=== PATIENT | male | born 1945 | race Caucasian/White ===

== ENCOUNTER 2024-01-12 21:28 | Emergency (ER) | payer OTHER ==
[~2024-01-12] VITALS: Ht 185.4 cm; Wt 118.2 kg
[2024-01-12 23:27] VITALS: BP 146/76; PULSE 98; RESP 20; TEMP 98.2; O2SAT 95
[2024-01-12] MEDS: DexAMETHasone SOD PHOS 10MG/1ML VIAL INJ IM ONE (23:39)
== END 2024-01-12 23:45 | disposition home or self-care (01) ==
LOC: ER 21:28
DX: J02.9 Acute pharyngitis, unspecified (principal); R59.0 Localized enlarged lymph nodes; J44.9 Chronic obstructive pulmonary disease, unspecified
CPT/HCPCS: 96372; 99283; J1100

== ENCOUNTER 2024-04-01 21:29 | Inpatient (IN) | payer MEDICARE, OTHER ==
[~2024-04-01] VITALS: Ht 185.4 cm; Wt 118.0 kg
[2024-04-01] MEDS: MORPHINE SULFATE INJ 2 MG/ml SYRG IV ONE (21:45)
[2024-04-01] MEDS: ASPirin-EC 81 mg tab PO ONE (21:45)
--- NOTE | 2024-04-01 21:48 | ED.PDOC ---
HPI Comments HPI: Poor Historian. 79-year-old male brought in by ambulance from home for evaluation of chest pain with palpitation that happened approximately 8:00 p.m. after he took all his usual home medications including albuterol. Patient laid in bed and started having this sensation. He received aspirin and nitroglycerin prior to arrival which she has brought his pain and discomfort down to 0. Patient uses oxygen at nighttime as needed Past Medcial History: Supple medical problems Past Surgical History: REVIEW OF SYSTEMS: CONSTITUTIONAL: Denies acute: fever, diaphoresis, chills, HEAD: Denies acute: headache, photophobia Eyes: Denies acute: Double vision, vision loss, eye pain, eye discharge. EARS: Denies acute: tinnitus, hearing loss, ear discharge, ear pain, THROAT: Denies acute: sore throat, swelling, difficulty swallowing , pain with s wallowing, change in voice. NECK: Denies acute: neck pain, neck swelling, stiff neck. HEART: Denies acute : LUNGS: Denies acute: SOB, wheezing, cough, hemoptysis ABDOMEN: Denies acute: abdominal pain, Nausea, Vomiting, diarrhea, melena , hematemesis, hematochezia SKIN: Denies acute: rash, redness, lesions, itchiness. EXTREMITIES: Denies acute: calf pain, numbness, tingling, weakness, denies pain in extremity. Denies acute: Low back pain. Neuro: Denies acute: focal neurological deficit, motor or sensory focal neurological deficit, tremors, seizure like activity, confusion, dizziness, change in mental status, loss of bowel or bladder function, cauda equina like symptoms. : Denies acute: dysuria, hematuria, flank pain, increase in urinary frequency. PSYCH: Denies acute: hallucination, suicidal ideation, homicidal ideation. PHYSICAL EXAM: General: no acute distress, awake and alert. Head: normocephalic, atraumatic. Neck: supple, trachea is midline, no swelling. Throat: Normal phonation. Eyes:, no erythema, no purulent discharge, no proptosis, no icterus. Heart: regular rate, regular rhythm, no significant murmur appreciated. Lungs: no apparent respiratory distress, Able to speak in full sentences. No wheezing, no rhonchi, no crackles. No stridors Clear to auscultation bilaterally. Abdomen: non tender to palpation, non distended, soft, no guarding, no rebound, + bowel sounds. Neuro: Awake, Alert, oriented to name, self, situation, follows commands GCS=15. Speech is normal. Skin: no petechia, no purpura, no cyanosis, non-pale, not jaundice. Lower extremities: --1/4 bilateral - Pitting edema no deformity, no focal swelling, no calf TTP. Makes eye contact. moves all four extremities. Face: no apparent facial droop. Chief Complaint: Chest Pain Time Seen by MD: 21:40 Reviewed Notes: Nurses Notes, Regional Project Manager Notes, Medications, Allergies Allergies: Coded Allergies: NO KNOWN ALLERGIES (Unverified , 01/12/24) Home Meds Unable to Obtain Active Prescriptions or Reported Meds Information Source: Patient, Emergency Med Personnel Past Medical History PAST MEDICAL HISTORY: COPD Family History Family History: Reviewed,noncontributory to illness Was a procedure done? Was a procedure done?: No CP Differential Dx Differential Diagnosis: Other Differential Diagnosis: Other (Ddx include but not limitied to gastritis, musculoskeletal pain, radiculopathy, atypical chest pain, dissection, aneurysm, ACS, unstable angina, hiatal hernia, GERD, anxiety, costochondritis, PE, pneumothroax, neoplasm, cardiac ischemia, drug abuse, anemia.) X-Ray, Labs, Meds, VS Vital Signs Date Time Temp Pulse Resp B/P (MAP) Pulse Ox O2 Delivery O2 Flow Rate FiO2 04/01/24 22:40 Nasal Cannula* 3 32 04/01/24 22:40 97.6 77 19 111/62 (78) 94 97.6 04/01/24 22:26 82 04/01/24 21:32 98.7 101 18 143/75 (97) 92 04/01/24 21:31 91 Lab Test 04/01/24 22:40 04/01/24 21:35 Range/Units Troponin I High Sensitivity 3 L 4 </=54 ng/L White Blood Count 5.3 4.4-10.8 10^3/uL Red Blood Count 4.46 L 4.5-5.90 10^6/uL Hemoglobin 14.1 13.5-17.5 g/dL Hematocrit 41.2 41.0-53.0 % Mean Corpuscular Volume 92.4 80.0-100.0 fL Mean Corpuscular Hemoglobin 31.6 28.0-32.0 pg Mean Corpuscular Hemoglobin Concent 34.1 32.0-36.0 g/dL Red Cell Distribution Width 15.5 H 11.8-14.3 % Platelet Count 172 140-450 10^3/uL Mean Platelet Volume 7.2 6.9-10.8 fL Neutrophils (%) (Auto) 38.8 37.0-80.0 % Lymphocytes (%) (Auto) 43.8 10.0-50.0 % Monocytes (%) (Auto) 13.1 H 0.0-12.0 % Eosinophils (%) (Auto) 3.1 0.0-7.0 % Basophils (%) (Auto) 1.2 0.0-2.0 % Neutrophils # (Auto) 2.1 1.6-8.6 10 ^3/uL Lymphocytes # (Auto) 2.3 0.4-5.4 10 ^3/uL Monocytes # (Auto) 0.7 0-1.3 10 ^3/uL Eosinophils # (Auto) 0.2 0-0.8 10 ^3/uL Basophils # (Auto) 0.1 0-0.2 10 ^3/uL Nucleated Red Blood Cells 0.0 % Prothrombin Time 12.1 H 9.3-11.8 sec Prothrombin Time INR 1.15 0.9-1.15 Activated Partial Thromboplast Time 29.3 24.5-34.5 SEC Sodium Level 141 136-145 mmol/L Potassium Level 3.8 3.5-5.1 mmol/L Chloride Level 109 H 98-107 mmol/L Carbon Dioxide Level 25 20-31 mmol/L Anion Gap 7 5-15 Blood Urea Nitrogen 10 9-23 mg/dL Creatinine 1.46 H 0.700-1.30 mg/dL Glomerular Filtration Rate Calc 48 >90 mL/min BUN/Creatinine Ratio 6.8 L 10.0-20.0 Serum Glucose 107 H 74-106 mg/dL Calcium Level 9.5 8.7-10.4 mg/dL Magnesium Level 1.8 1.6-2.6 mg/dL Total Bilirubin 0.5 0.2-1.0 mg/dL Aspartate Amino Transferase (AST) 11 L 13-40 U/L Alanine Aminotransferase (ALT) 10 7-40 U/L Alkaline Phosphatase 84 46-116 U/L B-Type Natriuretic Peptide 27.06 0-100 pg/mL Total Protein 6.0 5.7-8.2 g/dL Albumin 3.8 3.2-4.8 g/dL Time of 1ST Reevaluation: 22:00 Reevaluation 1ST: Improved Patient Education/Counseling: Diagnosis, Treatment Family Education/Counseling: No Family Present Comments Patient presented with the above HPI.--cardiac----workup was initiated. patient was found with the above mentioned diagnosis. Patient ED course and VS have been stabilized. Patient has been reassessed in the ED and remained in a stable condition. Pertinent incidental findings were discussed with the patient and/or family. Patient/family voices understanding and is agreeable with plan. Patient has been observed in the ED adequate length of time to insure improve ment/stability. patient was admitted to the medicine team for further evaluation and treatment of their presentation. All the reports of any imaging studies that were ordered by myself were reviewed by myself. Departure 1 Departure Time of Disposition: 22:35 Impression: Primary Impression: Chest pain Disposition: ADMITTED INPATIENT Admit to: Tele Condition: Guarded e-Prescriptions Unable to Obtain Active Prescriptions or Reported Meds Discharged With: Self Critical Care Note Critical Care Time?: No Heart Score Heart Score: Heart Score Response (Comments) Value History Slightly Suspicious 0 EKG Normal 0 Age >65 2 Risk Factors 1 or 2 risk factors 1 Troponin Normal limit 0 Total 3 LUIZA ROY DO Apr 01, 2024 21:48
[2024-04-01 21:50] LABS: Basophils # (auto) 0.1 10 ^3/uL (0-0.2); Basophils % (auto) 1.2 % (0.0-2.0); Eosinophils # (auto) 0.2 10 ^3/uL (0-0.8); Eosinophils % (auto) 3.1 % (0.0-7.0); Hematocrit 41.2 % (41.0-53.0); Hemoglobin 14.1 g/dL (13.5-17.5); Lymphocytes # (auto) 2.3 10 ^3/uL (0.4-5.4); Lymphocytes % (auto) 43.8 % (10.0-50.0); Mean Corpuscular Hemoglobin 31.6 pg (28.0-32.0); Mean Corpuscular Hgb Conc. 34.1 g/dL (32.0-36.0); Mean Corpuscular Volume 92.4 fL (80.0-100.0); Monocytes # (auto) 0.7 10 ^3/uL (0-1.3); Monocytes % (auto) 13.1 % (0.0-12.0); Neutrophils # (auto) 2.1 10 ^3/uL (1.6-8.6); Neutrophils % (auto) 38.8 % (37.0-80.0); Platelet Count (auto) 172 10^3/uL (140-450); Red Blood Cells 4.46 10^6/uL (4.5-5.90); Red Cell Distribution Width 15.5 % (11.8-14.3); White Blood Cell 5.3 10^3/uL (4.4-10.8)
[2024-04-01 22:07] LABS: Alanine Aminotransferase 10 U/L (7-40); Albumin 3.8 g/dL (3.2-4.8); Alkaline Phosphatase 84 U/L (46-116); Anion Gap 7 (5-15); Aspartate Aminotransferase 11 U/L (13-40); BUN/Creatinine Ratio 6.8 (10.0-20.0); Blood Urea Nitrogen 10 mg/dL (9-23); Calcium 9.5 mg/dL (8.7-10.4); Carbon Dioxide 25 mmol/L (20-31); Chloride 109 mmol/L (98-107); Glucose 107 mg/dL (74-106); Magnesium 1.8 mg/dL (1.6-2.6); Potassium 3.8 mmol/L (3.5-5.1); Sodium 141 mmol/L (136-145)
[2024-04-01 22:08] LABS: Bilirubin, Total 0.5 mg/dL (0.2-1.0)
[2024-04-01 22:10] LABS: INR 1.15 (0.9-1.15); Partial Thromboplastin Time 29.3 SEC (24.5-34.5); Prothrombin Time 12.1 sec (9.3-11.8)
--- NOTE | 2024-04-01 22:11 | DVH ---
CHEST RADIOGRAPH Indication:chest pain Technique: Single frontal view of the chest was obtained Comparison: None Findings/ IMPRESSION: Diffuse coarse interstitial prominence. Left basilar atelectasis with superimposed infection not excl uded. No pneumothorax. No pleural effusions.
[2024-04-01] MEDS ORDERED: NITROGLYCERIN 0.4 MG SL TAB SL PRN (23:15)
[2024-04-01] MEDS ORDERED: MORPHINE SULFATE INJ 2 MG/ml SYRG IV PRN ×2 (23:15)
[2024-04-01] MEDS ORDERED: ENOXAPARIN SOD 40 MG/0.4 ML SYRINGE SC SCH (23:15)
[2024-04-01] MEDS ORDERED: ONDANSETRON HCL 4 MG/2 ML VIAL IV PRN (23:15)
[2024-04-01] MEDS: ENOXAPARIN SOD 40 MG/0.4 ML SYRINGE SC SCH (23:59)
[2024-04-02] VITALS (14 sets, daily range): BP systolic 98–138; BP diastolic 54–77; PULSE 76–89; RESP 17–20; TEMP 97.6–98.5; O2SAT 92–100
--- NOTE | 2024-04-02 01:13 | DVHHPRES ---
History of Present Illness Resident Creating Document: LEAH PANTOJA RESIDENT History of Present Illness BROOKE CACERES is 79 years old male with a PMH of asthma, COPD, PTSD, CAD, HTN, sleep apnea presented to the ED with the chief complaints of increased blood pressure 174/94 associated with chest tightness and heart racing since night 8:00 p.m.. Patient reported after taking is night medications patient started having some chest tightness, relieved after some time again he tried to sleep, chest tightness /pressure which is nonradiating came back along with heart racing , experienced 3 episodes of same symptoms so came to ED. He received aspirin and nitroglycerin prior to arrival . Patient uses oxygen at nighttime as needed. On my assessment patient denies fever, chills, diaphoresis, nausea, vomiting, and other acute symptoms. Past Medical History asthma, COPD, PTSD, CAD, HTN, sleep apnea Past Surgical History: None Family History: None Past Social History Lives Alone. Denies smoking, alcohol and other drug abuse Review of Systems Constitutional: No: Fever, Chills, Sweats, Weakness, Malaise, Other Eyes: No: Pain, Vision change, Conjunctivae inflammation, Eyelid inflammation, Other, Redness ENT: No: Ear pain, Ear discharge, Nose pain, Nose discharge, Nose congestion, Mouth pain, Mouth swelling, Throat pain, Throat swelling, Other Cardiovascular: Chest Pain, Palpitations Gastrointestinal: No: Nausea, Vomiting, Abdominal Pain, Diarrhea, Constipation, Melena, Hematochezia, Other Genitourinary: No Dysuria, No Frequency, No Incontinence, No Hematuria, No Retention, No Other Musculoskeletal: No: other, neck pain, shoulder pain, arm pain, back pain, hand pain, leg pain, foot pain Skin: No: Rash, Lesions, Jaundice, Bruising, Other Neurological: No: Weakness, Numbness, Incoordination, Change in speech, Confusion, Seizures, Other Allergies: Coded Allergies: NO KNOWN ALLERGIES (Unverified , 01/12/24) Medications Current Medications Medications Dose Ordered Sig/Dorothea Route Start Time Stop Time Status Last Admin Dose Admin Sodium Chloride 10 ml Q8HR IV 04/02/24 06:00 Ondansetron HCl 4 mg Q4HP PRN IV 04/01/24 23:15 Morphine Sulfate 2 mg Q4HPRN PRN IV 04/01/24 23:15 Nitroglycerin 0.4 mg Q5MINP PRN SL 04/01/24 23:15 Morphine Sulfate 2 mg Q30M PRN IV 04/01/24 23:15 Enoxaparin Sodium 40 mg Q24H SC 04/01/24 23:15 04/01/24 23:59 40 MG Pantoprazole Sodium 40 mg DAILY IV 04/02/24 10:00 UNV Exam Vital Signs Vital Signs Date Time Temp Pulse Resp B/P (MAP) Pulse Ox O2 Delivery O2 Flow Rate FiO2 04/02/24 00:33 77 04/01/24 22:40 97.6 19 111/62 (78) 94 97.6 Exam Pt is lying on bed General Appearance: Alert, Oriented X3, Cooperative, Not in acute distress HEENT: Atraumatic, Mucous membranes moist/pink Respiratory: Clear to auscultation, Normal air movement, No added sounds Cardiovascular: Regular rate, Normal S1, Normal S2, No murmurs Abdominal: Active bowel sounds, Soft, no distention, no tenderness Extremities: Trace to 1+ edema, Normal pulses, No tenderness/swelling Skin: No Significant rash, except past surgical scars Neuro: Normal speech, sensorimotor deficits none Psych/Mental Status: Mental status NL, Mood NL Nurse was there as sharperone during examination Labs/Xrays Labs Test 04/02/24 00:26 04/01/24 21:35 Range/Units Troponin I High Sensitivity 3 L </=54 ng/L White Blood Count 5.3 4.4-10.8 10^3/uL Red Blood Count 4.46 L 4.5-5.90 10^6/uL Hemoglobin 14.1 13.5-17.5 g/dL Hematocrit 41.2 41.0-53.0 % Mean Corpuscular Volume 92.4 80.0-100.0 fL Mean Corpuscular Hemoglobin 31.6 28.0-32.0 pg Mean Corpuscular Hemoglobin Concent 34.1 32.0-36.0 g/dL Red Cell Distribution Width 15.5 H 11.8-14.3 % Platelet Count 172 140-450 10^3/uL Mean Platelet Volume 7.2 6.9-10.8 fL Neutrophils (%) (Auto) 38.8 37.0-80.0 % Lymphocytes (%) (Auto) 43.8 10.0-50.0 % Monocytes (%) (Auto) 13.1 H 0.0-12.0 % Eosinophils (%) (Auto) 3.1 0.0-7.0 % Basophils (%) (Auto) 1.2 0.0-2.0 % Neutrophils # (Auto) 2.1 1.6-8.6 10 ^3/uL Lymphocytes # (Auto) 2.3 0.4-5.4 10 ^3/uL Monocytes # (Auto) 0.7 0-1.3 10 ^3/uL Eosinophils # (Auto) 0.2 0-0.8 10 ^3/uL Basophils # (Auto) 0.1 0-0.2 10 ^3/uL Nucleated Red Blood Cells 0.0 % Prothrombin Time 12.1 H 9.3-11.8 sec Prothrombin Time INR 1.15 0.9-1.15 Activated Partial Thromboplast Time 29.3 24.5-34.5 SEC Sodium Level 141 136-145 mmol/L Potassium Level 3.8 3.5-5.1 mmol/L Chloride Level 109 H 98-107 mmol/L Carbon Dioxide Level 25 20-31 mmol/L Anion Gap 7 5-15 Blood Urea Nitrogen 10 9-23 mg/dL Creatinine 1.46 H 0.700-1.30 mg/dL Glomerular Filtration Rate Calc 48 >90 mL/min BUN/Creatinine Ratio 6.8 L 10.0-20.0 Serum Glucose 107 H 74-106 mg/dL Calcium Level 9.5 8.7-10.4 mg/dL Magnesium Level 1.8 1.6-2.6 mg/dL Total Bilirubin 0.5 0.2-1.0 mg/dL Aspartate Amino Transferase (AST) 11 L 13-40 U/L Alanine Aminotransferase (ALT) 10 7-40 U/L Alkaline Phosphatase 84 46-116 U/L B-Type Natriuretic Peptide 27.06 0-100 pg/mL Total Protein 6.0 5.7-8.2 g/dL Albumin 3.8 3.2-4.8 g/dL Assessment/Plan Assessment/Plan # chest pain rule out ACS -reviewed 12 lead EKG -troponins x3 were negative -under chest pain protocol -consult cardiology for further management # hypertensive urgency -continuously monitor blood pressure -hydralazine p.r.n. 10 mg # JACQUELINE likely VMN -monitor lab -encouraged oral fluids # chronic hypoxic respiratory failure # COPD not in exacerbation -currently on NC -ordered albuterol med neb # CAD Cardiac diet Protonix Lovenox Goals of care discussed with the patient for more than 27 minutes: Full code status Case discussed with Dr. Beth, patient and nurse Plan discussed with: Patient, Other (RN) My Orders Orders - LEAH PANTOJA RESIDENT Procedure Category Date Status Time Admit ADMIT 04/01/24 Transmitted 23:06 Allergies AMIRA 04/01/24 In Process 23:06 Code Status CODE 04/01/24 Transmitted 23:06 2 Gm Sodium Diet DIET 04/02/24 Transmitted Breakfast Sodium Chloride Lock PHA 04/02/24 In Process (Saline Lock Ns) 06:00 Ondansetron Hcl PHA 04/01/24 In Process (Zofran) 23:15 Complete Blood Count LAB 04/02/24 Logged 04:00 Comprehensive LAB 04/02/24 Logged Metabolic Panel 04:00 Morphine Sulfate PHA 04/01/24 In Process Injection 23:15 Nitroglycerin PHA 04/01/24 In Process Sublingual (Ntrostat 23:15 Morphine Sulfate PHA 04/01/24 In Process Injection 23:15 Oxygen By Nasal RT 04/01/24 Transmitted Cannula 23:06 Stat Ekg For Chest AMIRA 04/01/24 In Process Pain 23:06 Notify Of Changes AMIRA 04/01/24 In Process From Base 23:06 Car Pre Cooler For AMIRA 04/01/24 In Process 24 Hours 23:06 Emergency Dysrhythmia AMIRA 04/01/24 In Process Protocol 23:06 Rhythm Strips Once AMIRA 04/01/24 In Process Every Shift 23:06 Enoxaparin Sodium PHA 04/01/24 In Process (Lovenox) 23:15 Pantoprazole PHA 04/02/24 Logged (Protonix) 01:15 Pantoprazole PHA 04/02/24 Logged (Protonix) 10:00 Albuterol Medneb PHA 04/02/24 Logged (Ventolin Medneb) 01:15 Hemoglobin A1c LAB 04/02/24 Transmitted 01:07 Drug Screen LAB 04/02/24 Transmitted 01:07 Vitamin D, 25-Hydroxy LAB 04/02/24 Transmitted 01:07 Vitamin B12 LAB 04/02/24 Transmitted 01:07 Thyroid Stimulating LAB 04/02/24 Transmitted Hormone 01:07 Date of Service: Apr 01, 2024 Billing Provider: GEN BETH MD Common Visit Codes: 28484-[id number] INP/OBS CARE (HIGH) Secondary Visit Codes: 01003-CCOEGIMY CARE PLAN 30 MINUTES LEAH PANTOJA RESIDENT Apr 02, 2024 01:13 GEN BETH MD Apr 02, 2024 08:58
[2024-04-02] MEDS ORDERED: ALBUTEROL SULF 2.5 MG/0.5ML(0.5%) NEB SOLN NEB PRN (01:15)
[2024-04-02] MEDS: PANTOPRAZOLE 40 MG/10 ML VIAL INJ IV ONE (01:38)
[2024-04-02] MEDS: FUROSEMIDE 20 MG/2 ML VIAL IV ONE ×2 (01:40→21:28)
--- NOTE | 2024-04-02 05:53 | ECG ---
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
--- NOTE | 2024-04-02 05:54 | ECG ---
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
[2024-04-02 06:26] LABS: Basophils # (auto) 0.1 10 ^3/uL (0-0.2); Basophils % (auto) 1.1 % (0.0-2.0); Eosinophils # (auto) 0.2 10 ^3/uL (0-0.8); Eosinophils % (auto) 3.5 % (0.0-7.0); Hematocrit 43.3 % (41.0-53.0); Hemoglobin 14.5 g/dL (13.5-17.5); Lymphocytes # (auto) 1.9 10 ^3/uL (0.4-5.4); Lymphocytes % (auto) 38.1 % (10.0-50.0); Mean Corpuscular Hemoglobin 31.2 pg (28.0-32.0); Mean Corpuscular Hgb Conc. 33.5 g/dL (32.0-36.0); Mean Corpuscular Volume 93.2 fL (80.0-100.0); Monocytes # (auto) 0.5 10 ^3/uL (0-1.3); Monocytes % (auto) 10.3 % (0.0-12.0); Neutrophils # (auto) 2.4 10 ^3/uL (1.6-8.6); Nucleated Red Blood Cells % 0.2 %; Platelet Count (auto) 172 10^3/uL (140-450); Red Blood Cells 4.65 10^6/uL (4.5-5.90); Red Cell Distribution Width 15.6 % (11.8-14.3); White Blood Cell 5.1 10^3/uL (4.4-10.8)
[2024-04-02] MEDS: SODIUM CHLOR 0.9% PF (SALINE LOCK) 10ML VIAL/SYR IV SCH (06:38)
[2024-04-02 06:44] LABS: Alanine Aminotransferase 11 U/L (7-40); Albumin 3.8 g/dL (3.2-4.8); Alkaline Phosphatase 89 U/L (46-116); Anion Gap 10 (5-15); Aspartate Aminotransferase 13 U/L (13-40); BUN/Creatinine Ratio 6.2 (10.0-20.0); Bilirubin, Total 0.5 mg/dL (0.2-1.0); Blood Urea Nitrogen 9 mg/dL (9-23); Calcium 9.5 mg/dL (8.7-10.4); Carbon Dioxide 24 mmol/L (20-31); Chloride 109 mmol/L (98-107); Glucose 107 mg/dL (74-106); Potassium 4.2 mmol/L (3.5-5.1); Sodium 143 mmol/L (136-145)
--- NOTE | 2024-04-02 07:12 | ECG ---
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
--- NOTE | 2024-04-02 07:57 | DVHDSRES ---
Discharge Summary Date of Admission Resident Creating Document: LEAH PANTOJA RESIDENT Apr 01, 2024 at 23:06 Labs/Diagnostic Data: Laboratory Results Test 04/02/24 05:35 04/02/24 00:26 04/01/24 21:35 White Blood Count 5.1 10^3/uL (4.4-10.8) Red Blood Count 4.65 10^6/uL (4.5-5.90) Hemoglobin 14.5 g/dL (13.5-17.5) Hematocrit 43.3 % (41.0-53.0) Mean Corpuscular Volume 93.2 fL (80.0-100.0) Mean Corpuscular Hemoglobin 31.2 pg (28.0-32.0) Mean Corpuscular Hemoglobin Concent 33.5 g/dL (32.0-36.0) Red Cell Distribution Width 15.6 % (11.8-14.3) Platelet Count 172 10^3/uL (140-450) Mean Platelet Volume 7.5 fL (6.9-10.8) Neutrophils (%) (Auto) 47.0 % (37.0-80.0) Lymphocytes (%) (Auto) 38.1 % (10.0-50.0) Monocytes (%) (Auto) 10.3 % (0.0-12.0) Eosinophils (%) (Auto) 3.5 % (0.0-7.0) Basophils (%) (Auto) 1.1 % (0.0-2.0) Neutrophils # (Auto) 2.4 10 ^3/uL (1.6-8.6) Lymphocytes # (Auto) 1.9 10 ^3/uL (0.4-5.4) Monocytes # (Auto) 0.5 10 ^3/uL (0-1.3) Eosinophils # (Auto) 0.2 10 ^3/uL (0-0.8) Basophils # (Auto) 0.1 10 ^3/uL (0-0.2) Nucleated Red Blood Cells 0.2 % Sodium Level 143 mmol/L (136-145) Potassium Level 4.2 mmol/L (3.5-5.1) Chloride Level 109 mmol/L (98-107) Carbon Dioxide Level 24 mmol/L (20-31) Anion Gap 10 (5-15) Blood Urea Nitrogen 9 mg/dL (9-23) Creatinine 1.45 mg/dL (0.700-1.30) Glomerular Filtration Rate Calc 49 mL/min (>90) BUN/Creatinine Ratio 6.2 (10.0-20.0) Serum Glucose 107 mg/dL (74-106) Hemoglobin A1c 6.0 % A1C (<5.7) Calcium Level 9.5 mg/dL (8.7-10.4) Total Bilirubin 0.5 mg/dL (0.2-1.0) Aspartate Amino Transferase (AST) 13 U/L (13-40) Alanine Aminotransferase (ALT) 11 U/L (7-40) Alkaline Phosphatase 89 U/L (46-116) Total Protein 6.0 g/dL (5.7-8.2) Albumin 3.8 g/dL (3.2-4.8) Vitamin B12 Level 417 pg/mL (211-911) Vitamin D 25-Hydroxy 79.7 ng/mL (30.0-100) Thyroid Stimulating Hormone (TSH) 3.28 uIU/mL (0.55-4.78) Troponin I High Sensitivity 3 ng/L (</=54) Prothrombin Time 12.1 sec (9.3-11.8) Prothrombin Time INR 1.15 (0.9-1.15) Activated Partial Thromboplast Time 29.3 SEC (24.5-34.5) Magnesium Level 1.8 mg/dL (1.6-2.6) B-Type Natriuretic Peptide 27.06 pg/mL (0-100) Other Laboratory Tests 04/02/24 05:35 Discharge Statement: "Patient was advised to return to the ER or call 911 if any headaches, dizziness, shortness of breath, chest pain, abdominal pain, bleeding, fevers, or worsening of medical condition. Patient was counseled about treatment plan, medications, possible side effects, patientverbalized understanding. All questions were answered to the best of my ability. This discharge took greater then 30 minutes in planning, reviewing documentation, counseling the patient, and discussing with other team members." ASSESSMENT ASSESSMENT Assessment FARRAH CHI RESIDENT Apr 02, 2024 07:57
[2024-04-02 08:48] LABS: Triglycerides 126 mg/dL (< 150)
[2024-04-02 08:49] LABS: LDL Cholesterol 55 mg/dL (< 100)
[2024-04-02 08:50] LABS: Cholesterol 118 mg/dL (< 200); HDL Cholesterol 43 mg/dL (40-59)
[2024-04-02] MEDS: PANTOPRAZOLE 40 MG/10 ML VIAL INJ IV SCH (10:00)
--- NOTE | 2024-04-02 11:32 | DVHINCON2 ---
Date Seen: Apr 02, 2024 Referring Physician MD [place] resident Reason for Consultation Chest pain History of Present Illness This is an 79-year-old male patient who presents to the emergency room with chief complaint of palpitations and left sided body pain. The patient reports that last night approximately at 7:00 p.m.,he went to go lay down on his left side and he started experiencing pain in that area as well as palpitations. He said he got up to get a glass of water and the pain subsided. Shortly after, he went back to lay down and experienced the same symptoms. The patient reports he checked his blood pressure at home and noticed that his systolic BP was in the 170s. He decided to come to the emergency room for further evaluation. Blood pressure upon emergency room arrival was 143/75. He denies any kind of chest pain and states that his pain was only located on the left ribcage area. Initial twelve lead electrocardiogram reveals normal sinus rhythm Q-waves in anterolateral leads. Initial serial troponin levels have been negative. Significant past medical history includes coronary artery disease status post plain old balloon angioplasty X 3 (last time in 1998), myocardial infarction, hypertension, COPD, asthma, sleep apnea with CPAP use, arthritis, gout, history of tobacco use, and morbid obesity. 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 Past Medical History Past medical history reviewed. No other significant than mentioned above. Past Surgical History Back surgery Family History: Alcoholism G8 FATHER FH: [place] (myocardial infarction) G8 MOTHER FH: kidney failure G8 FATHER FH: schizophrenia G8 FATHER Thyroid disease G8 MOTHER Family History Family history reviewed. Social History The patient has a 17.5 pack-year history, quit smoking 31 years ago Patient denies any illicit drug use Patient denies any alcohol use Allergies: Coded Allergies: NO KNOWN ALLERGIES (Unverified , 01/12/24) Home Meds Unable to Obtain Active Prescriptions or Reported Meds Home Meds Home medications reviewed. Current Medications Current Medications Medications (Trade) Dose Ordered Sig/Dorothea Route PRN Reason Start Time Stop Time Status Last Admin Sodium Chloride (Saline Lock Ns) 10 ml Q8HR IV 04/02/24 06:00 04/02/24 06:38 Ondansetron HCl (Zofran) 4 mg Q4HP PRN IV NAUSEA / VOMITING 04/01/24 23:15 Morphine Sulfate 2 mg Q4HPRN PRN IV SEVERE PAIN (7-10 PAIN SCALE) 04/01/24 23:15 Enoxaparin Sodium (Lovenox) 40 mg DAILY SC 04/01/24 23:15 04/01/24 23:14 DC Nitroglycerin (Ntrostat Sublingual) 0.4 mg Q5MINP PRN SL FOR CHEST PAIN 04/01/24 23:15 Morphine Sulfate 2 mg Q30M PRN IV FOR CHEST PAIN 04/01/24 23:15 Enoxaparin Sodium (Lovenox) 40 mg Q24H SC 04/01/24 23:15 04/01/24 23:59 Pantoprazole Sodium (Protonix) 40 mg DAILY IV 04/02/24 10:00 04/02/24 10:00 Albuterol (Ventolin Medneb) 2.5 mg Q4HPRN PRN NEB SHORTNESS OF BREATH 04/02/24 01:15 Review of Systems Constitutional: No symptom reported Ears, Nose, & Throat: No symptom reported Eyes: No symptom reported Neurological: No symptoms reported Pulmonary/Respiratory: No symptoms reported Cardiovascular: Palpitations Gastrointestinal: No symptom reported Genitourinary: No symptom reported Musculoskeletal: No symptom reported Skin: No symptom reported Psychiatric: No symptom reported Endocrine: No symptom reported Hematologic/Lymphatic: No symptom reported Vital Signs Vital Signs Date Time Temp Pulse Resp B/P (MAP) Pulse Ox O2 Delivery O2 Flow Rate FiO2 04/02/24 07:40 98 Nasal Cannula* 3 32 04/02/24 05:00 97.7 82 20 121/72 (88) 97.7 Physical Exam General Appearance: Cooperative. Morbidly obese Pulmonary/Respiratory: Diminished bilateral lower lobe sounds Cardiovascular/Chest: Regular rate and rhythm. Peripheral Pulses: 2+ Radial (R). 2+ Radial (L). 2+ Pedal (R). 2+ Pedal (L) Abdominal Exam: Normal bowel sounds. Ankle Exam: Negative ankle edema Lower extremities: Negative lower extremity edema Neuro/Mental Status: A/OX4, coherent. Thoughts/Psych: Normal thought pattern. Appropriate mood and affect. Good judgment and insight. Appearance: No acute distress. Skin Exam: Normal inspection. Normal color. Warm and dry. Labs/Diagnostic Data Labs Test 04/02/24 05:35 04/02/24 00:26 04/01/24 21:35 Range/Units White Blood Count 5.1 4.4-10.8 10^3/uL Red Blood Count 4.65 4.5-5.90 10^6/uL Hemoglobin 14.5 13.5-17.5 g/dL Hematocrit 43.3 41.0-53.0 % Mean Corpuscular Volume 93.2 80.0-100.0 fL Mean Corpuscular Hemoglobin 31.2 28.0-32.0 pg Mean Corpuscular Hemoglobin Concent 33.5 32.0-36.0 g/dL Red Cell Distribution Width 15.6 H 11.8-14.3 % Platelet Count 172 140-450 10^3/uL Mean Platelet Volume 7.5 6.9-10.8 fL Neutrophils (%) (Auto) 47.0 37.0-80.0 % Lymphocytes (%) (Auto) 38.1 10.0-50.0 % Monocytes (%) (Auto) 10.3 0.0-12.0 % Eosinophils (%) (Auto) 3.5 0.0-7.0 % Basophils (%) (Auto) 1.1 0.0-2.0 % Neutrophils # (Auto) 2.4 1.6-8.6 10 ^3/uL Lymphocytes # (Auto) 1.9 0.4-5.4 10 ^3/uL Monocytes # (Auto) 0.5 0-1.3 10 ^3/uL Eosinophils # (Auto) 0.2 0-0.8 10 ^3/uL Basophils # (Auto) 0.1 0-0.2 10 ^3/uL Nucleated Red Blood Cells 0.2 % Sodium Level 143 136-145 mmol/L Potassium Level 4.2 3.5-5.1 mmol/L Chloride Level 109 H 98-107 mmol/L Carbon Dioxide Level 24 20-31 mmol/L Anion Gap 10 5-15 Blood Urea Nitrogen 9 9-23 mg/dL Creatinine 1.45 H 0.700-1.30 mg/dL Glomerular Filtration Rate Calc 49 >90 mL/min BUN/Creatinine Ratio 6.2 L 10.0-20.0 Serum Glucose 107 H 74-106 mg/dL Hemoglobin A1c 6.0 H <5.7 % A1C Calcium Level 9.5 8.7-10.4 mg/dL Total Bilirubin 0.5 0.2-1.0 mg/dL Aspartate Amino Transferase (AST) 13 13-40 U/L Alanine Aminotransferase (ALT) 11 7-40 U/L Alkaline Phosphatase 89 46-116 U/L Total Protein 6.0 5.7-8.2 g/dL Albumin 3.8 3.2-4.8 g/dL Triglycerides Level 126 < 150 mg/dL Cholesterol Level 118 < 200 mg/dL LDL Cholesterol 55 < 100 mg/dL HDL Cholesterol 43 40-59 mg/dL Vitamin B12 Level 417 211-911 pg/mL Vitamin D 25-Hydroxy 79.7 30.0-100 ng/mL Thyroid Stimulating Hormone (TSH) 3.28 0.55-4.78 uIU/mL Troponin I High Sensitivity 3 L </=54 ng/L Prothrombin Time 12.1 H 9.3-11.8 sec Prothrombin Time INR 1.15 0.9-1.15 Activated Partial Thromboplast Time 29.3 24.5-34.5 SEC Magnesium Level 1.8 1.6-2.6 mg/dL B-Type Natriuretic Peptide 27.06 0-100 pg/mL Assessment Chest pain, rule out coronary ischemia Coronary artery disease s/p plain old balloon angioplasty X 3 Hx of myocardial infarction Hypertension COPD Sleep apnea with CPAP use Asthma Acute kidney injury Prediabetes Arthritis Morbid obesity, Class 2 Plan/Recommendation We will continue with following plan/recommendations (Dr. Collins): * Echocardiogram to evaluate cardiac function * Chest pain protocol * HEART score: 5 points (moderate score) * Aggressive BP control * Nuclear stress test Patient seen and examined at bedside with . Given the patient's presentation, cardiac history, comorbidities, and HEART score, we will recommend for the patient to undergo nuclear stress testing. We will schedule the patient at first availability. Thank you for allowing us to care for this patient. Please call with any questions or concerns. Critical care time spent: 40 minutes This medical document was created using an electronic medical record system with voice recognition software and computerized dictation system. Although this document has been carefully reviewed, there might still be some phonetic and typographical errors. Occasional wrong-word or ``sound-alike substitutions may have occurred due to the inherent limitations of voice recognition software. These areas are purely typographical due to imperfections of the software programs and do not reflect any compromise in the patient's medical care. Please read the chart carefully and recognize, using context, where these substitutions have occurred. Plan discussed with: Patient Date of Service: Apr 02, 2024 Billing Provider: KESHAV COLLINS MD Cardiology Common Codes: 80425-[id number] INP/OBS CARE (High) [employer] Apr 02, 2024 11:32
--- NOTE | 2024-04-02 13:27 | DVHSR ---
APPROVED REPORT EXAM: LIMITED Two-dimensional and M-mode echocardiogram with Doppler and color Doppler. Blood Pressure: 121/72 mmHg INDICATION Chest Pain RISK FACTORS Obesity: Height: 6' 1", Weight: 262 DIMENSIONS LVDd4.7 (3.8-5.7cm)LA (2D)4.0 (1.9-4.0cm)Aortic Root3.2 (2.0-3.7cm) LVDs3.3 (2.5-4.0cm)LA (MM) (1.9-4.0cm)Aortic Cusp Exc1.9 (1.5-2.0cm) EF (%) 5.0 (55-70%)Rt. Atrium3.6 (1.9-4.0cm)Asc. Aorta cm IVSd1.0 (0.7-1.1cm)RV (D) (1.8-2.4cm) PWd1.2 (0.7-1.1cm) Mitral Valve MitralMitral Stenosis E wave0.70m/sMV Mean GR.mmHg A wave1.10m/sMV Peak GR.mmHg E/A ratio0.62D MVAcm2 Aortic Valve Aortic ValveAortic Stenosis V10.80m/Zonia Mean GR.2mmHg V20.90m/Zonia Peak GR.4mmHg LVOT Diameter2.5 (1.8-2.4cm)Doppler AVA4.36cm2 Pulmonic Valve V20.80m/s Other Information Quality : Technically LimitedRhythm : Technically limited study due to body habitus. Conclusion Normal left ventricular size and dimension. Normal left ventricular systolic function estimated ejec tion fraction 55%. There is a grade 1 diastolic dysfunction. Normal normal right ventricular size and dimension. Normal right ventricular systolic function. Normal biatrial size and dimension. Normal aortic valve structure function. Normal mitral valve structure and function. Normal tricuspid valve structure and function. The pulmonary valve is grossly normal. No pericardial effusion.
[2024-04-02] MEDS: REGADENOSON 0.4 MG/5 ML SYRG IV ONE ×2 (13:36→13:44)
--- NOTE | 2024-04-02 13:56 | DVHPNRES ---
Progress Note Date Seen: Apr 02, 2024 Resident Creating Document: [facility] RESIDENT Has the PT tested + for MRSA If YES, has PT been informed?: No Medical Necessity Reason Pt with a Central, PICC or Fol: No Subjective Review of Systems Reviewed the patient at the bedside. Denies present chest pain, shortness of breath, PND orthopnea, patient's hemodynamically stable at the bedside detailed history was helpful. He promised to [facility] via fax. Patient reports: No new complaints, Feels better Changes from previous H/P or p: No Changes Review of Systems: HEENT:Normal, CVS:Abnormal (Left lower lobe area pain, unlikely cardiac), RESPIRATORY:Normal, GI:Normal, :Normal, MSK:Normal, NEURO:Normal Objective vital signs Vital Sign Date Time Temp Pulse Resp B/P (MAP) Pulse Ox O2 Delivery O2 Flow Rate FiO2 04/02/24 09:00 98.0 83 18 138/76 (96) 98 98.0 04/02/24 07:40 Nasal Cannula* 3 32 medications Current Medications Medications Dose Ordered Sig/Dorothea Route Start Time Stop Time Status Last Admin Dose Admin Sodium Chloride 10 ml Q8HR IV 04/02/24 06:00 04/02/24 06:38 10 ML Ondansetron HCl 4 mg Q4HP PRN IV 04/01/24 23:15 Morphine Sulfate 2 mg Q4HPRN PRN IV 04/01/24 23:15 Nitroglycerin 0.4 mg Q5MINP PRN SL 04/01/24 23:15 Morphine Sulfate 2 mg Q30M PRN IV 04/01/24 23:15 Enoxaparin Sodium 40 mg Q24H SC 04/01/24 23:15 04/01/24 23:59 40 MG Pantoprazole Sodium 40 mg DAILY IV 04/02/24 10:00 04/02/24 10:00 40 MG Albuterol 2.5 mg Q4HPRN PRN NEB 04/02/24 01:15 Examination: GENERAL:Normal, HEENT:Normal, NECK:Normal, LUNGS:Normal, CVS:Abnormal (Left lower chest towards mid axillary line has reproducible tenderness.), ABDOMEN:Normal, MSK:Abnormal (Right hand splint ), SKIN:Normal, NEURO:Normal laboratory and microbiology Laboratory Tests 04/02/24 05:35 Test 04/02/24 05:35 Range/Units Serum Glucose 107 H 74-106 mg/dL Labs and/or images reviewed: Labs reviewed by me, Image(s) reviewed by me Problem List/Assessment/Plan Problem List/Assessment/Plan Hospitalization: Mr. Duong, 79-year-old male [employer] with past medical history significant for hypertension, PTSD, asthma,? schizophrenia, PTSD, SUGAR on CPAP, came here with left lower sided superficial chest pain sharp in nature, recurrent, woke him up from sleep also associated with subjective palpitation came to the ED for the for further evaluation. Patient denies any PND, orthopnea, leg swelling, typical/atypical chest pain, chest injury, fall, fever, nausea, vomiting or any other systemic symptoms. Patient follows with [place] systemic Sophie ashley, PCP Dr. Dove, in the [place] system. Patient is poor historian can not tell me the entire list of his medications but trying to forward [facility]. #Chest pain likely musculoskeletal: reproducible chest wall pain left lower side mid axillary line. Cardiology on board. Appreciate input. Further workup with stress test. Patient is NPO. Follow UDS. #mild pulmonary congestion: Could be due to flash pulmonary edema, uncontrolled hypertension, noted more on CXR on the left side, basal rales, unlikely picture of fluid overload/lobar pneumonia IV Lasix 1 time, #known history of CAD: between 1996 and 1998 plain old balloon angioplasty X 3 (last time in 1998) ?stent placement previously. No recent chest pain or shortness of breath. Further workup with stress test, Cardiology input appreciated. #ruled out ACS: with negative troponin, EKG changes, unremarkable telemetry so far. #?acute hypoxic respiratory failure to rule out: could be due to pulmonary congestion, 3 L of nasal cannula oxygen. Weaning efforts ongoing. #Previous 40 pack-year smoking history, currently nonsmoker #Uncontrolled essential hypertension : At home patient noted elevated blood pressure at 189 mm of mercury for systolic blood pressure. For him ideal blood pressure will be 130/80 or below. Continue monitoring in hospital. Cardiac diet with 2 g salt restriction, weight loss will be helpful. #prediabetes: Denies previous history of diabetes mellitus, hemoglobin A1c of 6.2, lifestyle modifications at this point , review home medications. Target blood glucose 140s - 180, postprandial in hospital. #osteoarthritis: at baseline mobilize with cane. As needed premedication #Likely JACQUELINE due to VMN: check close input output/avoid nephrotoxic. #CKD yet to be ruled out: no known baseline renal functions #COPD/ asthma: Albuterol ipratropium q.6 as needed while awake. #Right hand trauma on thumb spica splint #SUGAR on CPAP: At night we will use CPAP. #known insomnia on trazodone #class 1 obesity with BMI 34.6 #Diet: NPO for now waiting for nuclear stress test #DVT: SCDs/mobility as possible Discussed with Dr. Beth. Code status: Full code. Complex care needed 43 minutes of detailed discussion. Barrier to discharge: Medical workup ongoing. Patient lives at home by himself at home. Unfortunately due to lung cancer complications. At baseline ADLs independent, at baseline patient is able to walk without any assistance , with partial help of cane. Plan discussed with: Patient My Orders My Orders Orders - [facility] Procedure Category Date Status Time Echo 2d Mode Cardiac US 04/02/24 Resulted DOP 08:08 Date of Service: Apr 02, 2024 Billing Provider: GEN BETH MD Common Visit Codes: [id number] INP/OBS CARE(HIGH) [facility] Apr 02, 2024 13:56 GEN BETH MD Apr 02, 2024 17:43
[2024-04-02 17:00] LABS: Erythrocyte Sedimentation Rate 2 mm/hr (0-20)
[2024-04-02] MEDS: ALBUTEROL SULF 2.5 MG/0.5ML(0.5%) NEB SOLN NEB SCH (18:49)
[2024-04-02] MEDS: IPRATROPIUM BROM 0.5 MG/2.5ML INH SOL NEB SCH (18:49)
[2024-04-02] MEDS: traZODone HCL 50 MG TAB PO SCH (21:23)
[2024-04-03] VITALS (15 sets, daily range): BP systolic 100–134; BP diastolic 52–84; PULSE 72–93; RESP 18; TEMP 97.6–97.9; O2SAT 92–100
[2024-04-03] MEDS: PANTOPRAZOLE 40 MG TAB PO SCH (06:35)
--- NOTE | 2024-04-03 08:20 | DVHPNRES ---
Progress Note Has the PT tested + for MRSA If YES, has PT been informed?: No Medical Necessity Reason Pt with a Central, PICC or Fol: No Objective vital signs Vital Sign Date Time Temp Pulse Resp B/P (MAP) Pulse Ox O2 Delivery O2 Flow Rate FiO2 04/03/24 07:28 88 18 99 04/03/24 07:22 Nasal Cannula 2.0 04/03/24 07:22 28 04/03/24 05:00 97.8 126/65 (85) 97.8 Total Intake and Output 04/02/24 04/02/24 04/03/24 15:00 23:00 07:00 Intake Total 400 ml Balance 400 ml medications Current Medications Medications Dose Ordered Sig/Dorothea Route Start Time Stop Time Status Last Admin Dose Admin Sodium Chloride 10 ml Q8HR IV 04/02/24 06:00 04/03/24 06:36 10 ML Ondansetron HCl 4 mg Q4HP PRN IV 04/01/24 23:15 Morphine Sulfate 2 mg Q4HPRN PRN IV 04/01/24 23:15 Nitroglycerin 0.4 mg Q5MINP PRN SL 04/01/24 23:15 Morphine Sulfate 2 mg Q30M PRN IV 04/01/24 23:15 Enoxaparin Sodium 40 mg Q24H SC 04/01/24 23:15 04/02/24 23:57 40 MG Nifedipine 30 mg DAILY PO 04/03/24 10:00 Albuterol 2.5 mg Q6HWA [facility] 04/02/24 18:00 04/03/24 07:22 2.5 MG Ipratropium [place] 0.5 mg Q6HWA [facility] 04/02/24 18:00 04/03/24 07:22 0.5 MG Pantoprazole Sodium 40 mg DAILY@0600 PO 04/03/24 06:00 04/03/24 06:35 40 MG Trazodone HCl 50 mg HS PO 04/02/24 22:00 04/02/24 21:23 50 MG laboratory and microbiology Laboratory Tests 04/02/24 05:35 Test 04/02/24 05:35 Range/Units Serum Glucose 107 H 74-106 mg/dL Problem List/Assessment/Plan Problem List/Assessment/Plan Hospitalization: Mr. Duong, 79-year-old male [employer] with past medical history significant for hypertension, PTSD, asthma,? schizophrenia, PTSD, SUGAR on CPAP, came here with left lower sided superficial chest pain sharp in nature, recurrent, woke him up from sleep also associated with subjective palpitation came to the ED for the for further evaluation. Patient denies any PND, orthopnea, leg swelling, typical/atypical chest pain, chest injury, fall, fever, nausea, vomiting or any other systemic symptoms. Patient follows with [place] systemic Sophie ashley, PCP Dr. Dove, in the [place] system. Patient is poor historian can not tell me the entire list of his medications but trying to forward his [facility]. #Chest pain likely musculoskeletal: reproducible chest wall pain left lower side mid axillary line. Cardiology on board. Appreciate input. Further workup with stress test. Patient is NPO. Follow UDS. #mild pulmonary congestion: Could be due to flash pulmonary edema, uncontrolled hypertension, noted more on CXR on the left side, basal rales, unlikely picture of fluid overload/lobar pneumonia IV Lasix 1 time, #known history of CAD: between 1996 and 1998 plain old balloon angioplasty X 3 (last time in 1998) ?stent placement previously. No recent chest pain or shortness of breath. Further workup with stress test, Cardiology input appreciated. #ruled out ACS: with negative troponin, EKG changes, unremarkable telemetry so far. #?acute hypoxic respiratory failure to rule out: could be due to pulmonary congestion, 3 L of nasal cannula oxygen. Weaning efforts ongoing. #Previous 40 pack-year smoking history, currently nonsmoker #Uncontrolled essential hypertension : At home patient noted elevated blood pressure at 189 mm of mercury for systolic blood pressure. For him ideal blood pressure will be 130/80 or below. Continue monitoring in hospital. Cardiac diet with 2 g salt restriction, weight loss will be helpful. #prediabetes: Denies previous history of diabetes mellitus, hemoglobin A1c of 6.2, lifestyle modifications at this point , review home medications. Target blood glucose 140s - 180, postprandial in hospital. #osteoarthritis: at baseline mobilize with cane. As needed premedication #Likely JACQUELINE due to VMN: check close input output/avoid nephrotoxic. #CKD yet to be ruled out: no known baseline renal functions #COPD/ asthma: Albuterol ipratropium q.6 as needed while awake. #Right hand trauma on thumb spica splint #SUGAR on CPAP: At night we will use CPAP. #known insomnia on trazodone #class 1 obesity with BMI 34.6 #Diet: NPO for now waiting for nuclear stress test #DVT: SCDs/mobility as possible Discussed with Dr. Beth. Code status: Full code. Complex care needed 43 minutes of detailed discussion. Barrier to discharge: Medical workup ongoing. Patient lives at home by himself at home. Unfortunately due to lung cancer complications. At baseline ADLs independent, at baseline patient is able to walk without any assistance , with partial help of cane. My Orders My Orders Orders - [facility] Procedure Category Date Status Time Albuterol Medneb PHA 04/02/24 In Process (Ventolin Medneb) 18:00 Ipratropium Medneb PHA 04/02/24 In Process (Atrovent Medneb) 18:00 Pantoprazole Tablet PHA 04/03/24 In Process (Protonix Tablet) 06:00 Respiratory Misc. RT 04/02/24 Transmitted Order 14:04 Trazodone Hcl PHA 04/02/24 In Process (Desyrel) 22:00 Oxygen By Nasal RT 04/02/24 Transmitted Cannula 14:20 Laboratory Results Laboratory Tests 04/02/24 05:35 Labs/Diagnostic Data Laboratory Tests Test 04/02/24 16:00 Range/Units Erythrocyte Sedimentation Rate 2 0-20 mm/hr [facility] RESIDENT Apr 03, 2024 08:20
[2024-04-03 09:44] LABS: Hepatitis B Surface Antigen Negative (Negative)
--- NOTE | 2024-04-03 09:44 | DVHSR ---
APPROVED REPORT Exam: Nuclear Stress Test Indication: Chest pain BMI: 0 Medical History Medical History: COPD, HTN, Stent, [place], Asthma Allergies: No known drug allergies Stress Test Details Stress Test: Pharmacologic stress testing performed using 0.4 mg of regadenoson per 5 mL given IV ov er 10 seconds. HR Resting HR: 83 bpmMax Heart Rate (APMHR): 140.852016 bpm Max HR Achieved: 97 bpmTarget HR (85% APMHR): 119.233218 bpm % of APMHR: 69.29 Recovery HR: 85 bpm BP Resting BP: 158/90 mmHg Recovery BP: 153/74 mmHg ECG Resting ECG: Sinus Rhythm Clinical Reason for Termination: Completed protocol Nurse Comments Recieved pt. from [facility]. A/Ox4 on RA. Connected to clinical research monitor, VS stable. PIV flushes well. Reviewed POC. Pt. verbalized understanding of procedure including risks and side ef fects, agrees for stress testing. Lexiscan stress test performed per protocol. [facility] tech administered Cardiolite. Pt. tolerated well . Pt. stable, no change on exam. VS returned to baseline. Transferred to [facility] via wheelchair w/ te ch. Stress ECG Conclusion Resting images shows fixed defect in the entire apical and anteroapical wall of the mid to apical seg ments. Indicating old apical infarction. Stress images shows the same defect with a minimal george-i nfarct ischemia. Moderately reduced left ventricular systolic function with estimated ejection fraction 41%. Impression: Moderately reduced left ventricular systolic function at 41%, old apical infarction with a minimal george-infarct ischemia. Low risk study. NM EXAM: Myocardial Perfusion REST/STRESS Imaging Protocol: Rest Tc-99m/Stress Tc-99m 1 day Resting Data Rest SPECT myocardial perfusion imaging was performed in supine position 45 minutes following the int ravenous injection of 8.5 mCi of Tc-99m Sestamibi. Time of rest injection: 1215 Time of rest imagin Administration Route: IV Administration Site: Left Hand Pharmacologic Stress Pharmacologic stress test was performed by injecting Regadenoson 0.4 mg IV push followed by the intra venous injection of 24.3 mCi of Tc-99m Sestamibi. Time of stress injection: 1430 Time of stress imagin Administration Route: IV Administration Site: Left AC Gated Stress SPECT was performed 45 minutes after stress injection. The images were gated to evaluate regional wall motion and calculate left ventricular ejection fracti on. Perfusion There is a medium area of severely reduced uptake in the entireapical segment of the anterior wall wh ich is seen on the stress images and normalizes on the resting images. This area is akinetic and is m ost consistent with myocardial scar. Nuclear Conclusion ECG Findings: negative for ischemia Clinical Findings: negative for ischemia Nuclear Findings: negative for ischemia Left Ventricular Function: abnormal Risk Study: low Resting images shows fixed defect in the entire apical and anteroapical wall of the mid to apical seg ments. Indicating old apical infarction. Stress images shows the same defect with a minimal george-i nfarct ischemia. Moderately reduced left ventricular systolic function with estimated ejection fraction 41%. Impression: Moderately reduced left ventricular systolic function at 41%, old apical infarction with a minimal george-infarct ischemia. Low risk study.
[2024-04-03 09:48] LABS: Chloride 107 mmol/L (98-107); Sodium 143 mmol/L (136-145)
[2024-04-03 09:49] LABS: Anion Gap 7 (5-15); Calcium 9.4 mg/dL (8.7-10.4); Carbon Dioxide 29 mmol/L (20-31)
[2024-04-03 09:54] LABS: BUN/Creatinine Ratio 5.8 (10.0-20.0); Blood Urea Nitrogen 8 mg/dL (9-23); Glucose 109 mg/dL (74-106)
[2024-04-03 10:04] LABS: Hepatitis C Antibody Negative (Negative)
[2024-04-03] MEDS: NIFEdipine ER 30 MG TAB PO SCH (10:19)
[2024-04-03] MEDS: FUROSEMIDE 20 MG/2 ML VIAL IV ONE (10:20)
--- NOTE | 2024-04-03 10:20 | DVHPN2 ---
Consult Progress Note Subjective Other Systems: Patient denies any cardiac symptoms at time of assessment. Objective vital signs Vital Sign Date Time Temp Pulse Resp B/P (MAP) Pulse Ox O2 Delivery O2 Flow Rate FiO2 04/03/24 08:49 97.6 93 18 134/76 (95) 92 97.6 04/03/24 07:22 Nasal Cannula 2.0 04/03/24 07:22 28 Total Intake and Output 04/02/24 04/02/24 04/03/24 15:00 23:00 07:00 Intake Total 400 ml Balance 400 ml medications Current Medications Medications Dose Ordered Sig/Dorothea Route Start Time Stop Time Status Last Admin Dose Admin Sodium Chloride 10 ml Q8HR IV 04/02/24 06:00 04/03/24 06:36 10 ML Ondansetron HCl 4 mg Q4HP PRN IV 04/01/24 23:15 Morphine Sulfate 2 mg Q4HPRN PRN IV 04/01/24 23:15 Nitroglycerin 0.4 mg Q5MINP PRN SL 04/01/24 23:15 Morphine Sulfate 2 mg Q30M PRN IV 04/01/24 23:15 Enoxaparin Sodium 40 mg Q24H SC 04/01/24 23:15 04/02/24 23:57 40 MG Nifedipine 30 mg DAILY PO 04/03/24 10:00 Albuterol 2.5 mg Q6HWA NEB 04/02/24 18:00 04/03/24 07:22 2.5 MG Ipratropium [place] 0.5 mg Q6HWA NEB 04/02/24 18:00 04/03/24 07:22 0.5 MG Pantoprazole Sodium 40 mg DAILY@0600 PO 04/03/24 06:00 04/03/24 06:35 40 MG Trazodone HCl 50 mg HS PO 04/02/24 22:00 04/02/24 21:23 50 MG Examination: GENERAL:Normal, LUNGS:Normal, CVS:Normal, NEURO:Normal laboratory and microbiology Laboratory Tests 04/03/24 09:13 04/02/24 05:35 Test 04/03/24 09:13 Range/Units Serum Glucose 109 H 74-106 mg/dL Problem List/Assessment/Plan Problem List/Assessment/Plan Chest pain, ruled out coronary ischemia Coronary artery disease s/p plain old balloon angioplasty X 3 Hx of myocardial infarction Hypertension COPD Sleep apnea with CPAP use Asthma Acute kidney injury Prediabetes Arthritis Morbid obesity, Class 2 Plan/Recommendation (Dr. Collins): Transthoracic echocardiogram reveals an EF of 55%. Patient underwent a nuclear stress test which was negative for ischemia, a low risk study. Continue with aggressive blood pressure control . There is no further inpatient cardiac workup indicated at this time. The patient should follow up with a multimedia instructional designer in the outpatient setting in 1-2 weeks post discharge. Thank you for allowing us to care for this patient. Please call with any questions or concerns. This medical document was created using an electronic medical record system with voice recognition software and computerized dictation system. Although this document has been carefully reviewed, there might still be some phonetic and typographical errors. Occasional wrong-word or ``sound-alike substitutions may have occurred due to the inherent limitations of voice recognition software. These areas are purely typographical due to imperfections of the software programs and do not reflect any compromise in the patient's medical care. Please read the chart carefully and recognize, using context, where these substitutions have occurred. Plan discussed with: Patient Date of Service: Apr 03, 2024 Billing Provider: KESHAV COLLINS MD Common Visit Codes: [id number] INP/OBS CARE(HIGH) AMRIK DEL ROSARIO INSTRUCTIONAL TECHNOLOGY TEACHER Apr 03, 2024 10:20
[2024-04-03] MEDS: PNEUMOCOCCAL VACC POLYS 25 MCG/0.5 ML VIAL IM ONE (13:48)
--- NOTE | 2024-04-03 15:27 | DVH ---
INDICATION: HTN TECHNIQUE: Multiple real-time sonographic images were obtained of the right upper quadrant. COMPARISON: None FINDINGS: Grayscale and color-flow imaging along with Doppler waveform analysis were obtained over th e renal arteries and kidney Right kidney measures 10.5 cm. peak systolic velocity 91 centimeters/second (normal). Resistive index 0.65 (normal). RAR 0.9 (normal) Left kidney measures 10.8 cm in length. Peak systolic velocity 33 centimeters/second (normal). Resist hao index 0.74 (normal)RAR 0.3 (normal ) IMPRESSION: 1. No evidence of renal artery stenosis
[2024-04-03] MEDS ORDERED: NIFE1TAB36 PO (17:28)
--- NOTE | 2024-04-03 17:39 | DVHDSRES ---
Discharge Summary Date of Admission Resident Creating Document: FARRAH CHI RESIDENT Apr 01, 2024 at 23:06 Date of Discharge: Apr 03, 2024 Admitting Diagnosis Hypertensive urgency with chest pain Labs/Diagnostic Data: Laboratory Results Test 04/03/24 09:13 04/02/24 16:00 04/02/24 05:35 04/02/24 00:26 Sodium Level 143 mmol/L (136-145) Potassium Level 4.0 mmol/L (3.5-5.1) Chloride Level 107 mmol/L (98-107) Carbon Dioxide Level 29 mmol/L (20-31) Anion Gap 7 (5-15) Blood Urea Nitrogen 8 mg/dL (9-23) Creatinine 1.38 mg/dL (0.700-1.30) Glomerular Filtration Rate Calc 52 mL/min (>90) BUN/Creatinine Ratio 5.8 (10.0-20.0) Serum Glucose 109 mg/dL (74-106) Calcium Level 9.4 mg/dL (8.7-10.4) Erythrocyte Sedimentation Rate 2 mm/hr (0-20) White Blood Count 5.1 10^3/uL (4.4-10.8) Red Blood Count 4.65 10^6/uL (4.5-5.90) Hemoglobin 14.5 g/dL (13.5-17.5) Hematocrit 43.3 % (41.0-53.0) Mean Corpuscular Volume 93.2 fL (80.0-100.0) Mean Corpuscular Hemoglobin 31.2 pg (28.0-32.0) Mean Corpuscular Hemoglobin Concent 33.5 g/dL (32.0-36.0) Red Cell Distribution Width 15.6 % (11.8-14.3) Platelet Count 172 10^3/uL (140-450) Mean Platelet Volume 7.5 fL (6.9-10.8) Neutrophils (%) (Auto) 47.0 % (37.0-80.0) Lymphocytes (%) (Auto) 38.1 % (10.0-50.0) Monocytes (%) (Auto) 10.3 % (0.0-12.0) Eosinophils (%) (Auto) 3.5 % (0.0-7.0) Basophils (%) (Auto) 1.1 % (0.0-2.0) Neutrophils # (Auto) 2.4 10 ^3/uL (1.6-8.6) Lymphocytes # (Auto) 1.9 10 ^3/uL (0.4-5.4) Monocytes # (Auto) 0.5 10 ^3/uL (0-1.3) Eosinophils # (Auto) 0.2 10 ^3/uL (0-0.8) Basophils # (Auto) 0.1 10 ^3/uL (0-0.2) Nucleated Red Blood Cells 0.2 % Hemoglobin A1c 6.0 % A1C (<5.7) Total Bilirubin 0.5 mg/dL (0.2-1.0) Aspartate Amino Transferase (AST) 13 U/L (13-40) Alanine Aminotransferase (ALT) 11 U/L (7-40) Alkaline Phosphatase 89 U/L (46-116) C-Reactive Protein High Sensitivity 0.17 mg/dL (<1.0) Total Protein 6.0 g/dL (5.7-8.2) Albumin 3.8 g/dL (3.2-4.8) Triglycerides Level 126 mg/dL (< 150) Cholesterol Level 118 mg/dL (< 200) LDL Cholesterol 55 mg/dL (< 100) HDL Cholesterol 43 mg/dL (40-59) Vitamin B12 Level 417 pg/mL (211-911) Vitamin D 25-Hydroxy 79.7 ng/mL (30.0-100) Thyroid Stimulating Hormone (TSH) 3.28 uIU/mL (0.55-4.78) Hepatitis B Surface Antigen Negative (Negative) Hepatitis C Antibody Negative (Negative) Troponin I High Sensitivity 3 ng/L (</=54) Test 04/01/24 21:35 Prothrombin Time 12.1 sec (9.3-11.8) Prothrombin Time INR 1.15 (0.9-1.15) Activated Partial Thromboplast Time 29.3 SEC (24.5-34.5) Magnesium Level 1.8 mg/dL (1.6-2.6) B-Type Natriuretic Peptide 27.06 pg/mL (0-100) Other Laboratory Tests 04/03/24 09:13 04/02/24 05:35 Brief Hx & Hospital Course: Mr. Duong, 79-year-old male [employer] with past medical history significant for hypertension, PTSD, asthma,? schizophrenia, PTSD, SUGAR on CPAP, came here with left lower sided superficial chest pain sharp in nature, recurrent, woke him up from sleep also associated with subjective palpitation came to the ED for the for further evaluation. Patient denies any PND, orthopnea, leg swelling, typical/atypical chest pain, chest injury, fall, fever, nausea, vomiting or any other systemic symptoms. [facility] follows with [facility], PCP Dr. Dove, in the [facility]. Patient is poor historian can not tell me the entire list of his medications but trying to forward his [facility] documents to [facility], [facility]. Patient lives at home by himself at home. Unfortunately due to lung cancer complications. At baseline ADLs independent, at baseline patient is able to walk without any assistance , with partial help of cane. All cardiac workup for CAD ruled out. food prep worker input appreciated. Medical conditions treated in hospital: #Chest pain likely musculoskeletal #mild pulmonary congestion #known history of CAD #ruled out ACS #?acute hypoxic respiratory failure to rule out, weaned to room air #Previous 40 pack-year smoking history, currently nonsmoker #Uncontrolled essential hypertension #prediabetes hemoglobin A1c of 6.2 she #osteoarthritis #Likely JACQUELINE due to VM[facility] #CKD yet to be ruled out #COPD/ asthma #Right hand trauma on thumb spica splint #SUGAR on CPAP L #known insomnia on trazodone #class 1 obesity with BMI 34.[address] Beth. Code status: Full code. Complex care needed 43 minutes of detailed discussion. Patient is getting discharged to home with continuation of nifedipine ER 30 mg daily and hold all other antihypertensives for now. Continue other home medications and please monitor, keep a log of blood pressure. Follow up with the primary care physician as outpatient within 1 or 2 weeks of discharge. Discharge process needed 43 minutes of complete discussion. Patient agreeable to the plan. Condition at Discharge: Fair Final Diagnosis/Problems List #Chest pain likely musculoskeletal #work up continues to rule out cardiac angina #mild pulmonary congestion #known history of CAD #ruled out ACS: with negative troponin, EKG changes, unremarkable telemetry so far. #acute hypoxic respiratory failure to rule out #Previous 40 pack-year smoking history, currently nonsmoker #Uncontrolled essential hypertension #prediabetes #osteoarthritis #Likely JACQUELINE due to VMN #CKD yet to be ruled out #COPD/ asthma #Right hand trauma on thumb spica splint #SUGAR on CPAP #known insomnia on trazodone #class 1 obesity with BMI 34.6 #DVT: SCDs/mobility as possible Discharge Disposition: Home Discharge Instruct/Medications Diet: Cardiac 2g Na,low cholest Activity: No Restrictions, As Tolerated Follow Up/Referral: Please follow with your primary care physician within 1-2 weeks of discharge. Medications: Please disconitnue all other blood pressure htn medications. Continue Nifedipine 30 mg daily. Please continue other medications as prescribed. Discharge Statement: "Patient was advised to return to the ER or call 911 if any headaches, dizziness, shortness of breath, chest pain, abdominal pain, bleeding, fevers, or worsening of medical condition. Patient was counseled about treatment plan, medications, possible side effects, patientverbalized understanding. All questions were answered to the best of my ability. This discharge took greater then 30 minutes in planning, reviewing documentation, counseling the patient, and discussing with other team members." ASSESSMENT ASSESSMENT Assessment #Chest pain likely musculoskeletal #work up continues to rule out cardiac angina #mild pulmonary congestion #known history of CAD #ruled out ACS: with negative troponin, EKG changes, unremarkable telemetry so far. #acute hypoxic respiratory failure to rule out #Previous 40 pack-year smoking history, currently nonsmoker #Uncontrolled essential hypertension #prediabetes #osteoarthritis #Likely JACQUELINE due to VMN #CKD yet to be ruled out #COPD/ asthma #Right hand trauma on thumb spica splint #SUGAR on CPAP #known insomnia on trazodone #class 1 obesity with BMI 34.6 #DVT: SCDs/mobility as possible Date of Service: Apr 03, 2024 Billing Provider: GEN BETH MD Common Visit Codes: 85722-CIG/OBS DISCH DAY >30min FARRAH CHI RESIDENT Apr 03, 2024 17:38 GEN BETH MD Apr 03, 2024 18:01
== END 2024-04-03 21:00 | disposition home or self-care (01) | DRG 304 ==
LOC: EDBD 21:29 → ER 21:29 → TELE 23:06 → TELE-CENTR 04-02 02:32
PROVIDERS: ADMIT Internal Medicine; ATTEND Internal Medicine
DX: I16.0 Hypertensive urgency (principal); J96.21 Acute and chronic respiratory failure with hypoxia; N17.0 Acute kidney failure with tubular necrosis; R73.03 Prediabetes; J44.89 Other specified chronic obstructive pulmonary disease; F43.10 Post-traumatic stress disorder, unspecified; E66.01 Morbid (severe) obesity due to excess calories; G47.00 Insomnia, unspecified; M10.9 Gout, unspecified; G47.33 Obstructive sleep apnea (adult) (pediatric); Z68.34 Body mass index [BMI] 34.0-34.9, adult; I25.2 Old myocardial infarction; Z82.49 Family history of ischemic heart disease and other diseases of the circulatory system; Z81.8 Family history of other mental and behavioral disorders; Z87.891 Personal history of nicotine dependence
CPT/HCPCS: 36415; 71045; 78452; 80048; 80053; 80061; 82306; 82607; 83036; 83735; 83880; 84443; 84484; 85025; 85610; 85652; 85730; 86141; 86803; 87340; 93005; 93017; 93306; 93976; 94640; G0378; J2470

== ENCOUNTER 2024-09-02 07:08 | Emergency (ER) | payer OTHER ==
[~2024-09-02] VITALS: Ht 182.9 cm; Wt 119.1 kg
[~2024-09-02 07:08] MED LIST: NIFE1TAB36 PO
--- NOTE | 2024-09-02 08:16 | DVH ---
CHEST RADIOGRAPH Indication: Cough, rule out PNA Technique: Single frontal view of the chest was obtained Comparison: None FINDINGS: Lines and Tubes: None Lungs: Interstitial prominence. No focal airspace disease. Pleura: No effusion. No pneumothorax. Cardiomediastinal contours: Unremarkable Bones: Unremarkable IMPRESSION: 1. Interstitial prominence which may reflect pulmonary congestion or chronic lung disease.
[2024-09-02 08:43] VITALS: BP 110/62; PULSE 85; RESP 18; TEMP 97.5; O2SAT 95
[2024-09-02 08:53] LABS: Basophils # (auto) 0 10 ^3/uL (0-0.2); Basophils % (auto) 0.7 % (0.0-2.0); Eosinophils # (auto) 0.1 10 ^3/uL (0-0.8); Hematocrit 39.2 % (41.0-53.0); Hemoglobin 13.4 g/dL (13.5-17.5); Lymphocytes # (auto) 1.4 10 ^3/uL (0.4-5.4); Lymphocytes % (auto) 24.9 % (10.0-50.0); Mean Corpuscular Hemoglobin 31.6 pg (28.0-32.0); Mean Corpuscular Hgb Conc. 34.1 g/dL (32.0-36.0); Mean Corpuscular Volume 92.7 fL (80.0-100.0); Monocytes # (auto) 0.6 10 ^3/uL (0-1.3); Monocytes % (auto) 10.7 % (0.0-12.0); Neutrophils # (auto) 3.5 10 ^3/uL (1.6-8.6); Neutrophils % (auto) 61.7 % (37.0-80.0); Nucleated Red Blood Cells % 0.1 %; Platelet Count (auto) 190 10^3/uL (140-450); Red Blood Cells 4.23 10^6/uL (4.5-5.90); Red Cell Distribution Width 16.7 % (11.8-14.3); White Blood Cell 5.7 10^3/uL (4.4-10.8)
[2024-09-02 09:06] LABS: Anion Gap 8 (5-15); Carbon Dioxide 25 mmol/L (20-31); Potassium 4.1 mmol/L (3.5-5.1); Sodium 143 mmol/L (136-145)
[2024-09-02 09:07] LABS: Calcium 10.1 mg/dL (8.7-10.4)
[2024-09-02 09:12] LABS: BUN/Creatinine Ratio 14.8 (10.0-20.0); Blood Urea Nitrogen 20 mg/dL (9-23); Chloride 110 mmol/L (98-107); Glucose 163 mg/dL (74-106)
[2024-09-02 09:29] LABS: COVID19 ANTIGEN SOFIA FIA NEGATIVE (NEGATIVE); Rapid Influenza A Negative (Negative); Rapid Influenza B Negative (Negative)
[2024-09-02] MEDS ORDERED: AUG875T PO (09:37)
--- NOTE | 2024-09-02 09:38 | ED.PDOC ---
Eye-HPI HPI Comments This is a pleasant 79-year-old male that presents with a possible sinus in fection. Complains of frontal sinus pressure body aches x1 week. Able to get minimal relief with [id number] Tylenol Motrin and Sudafed. Denies any high fevers diplopia etc. Chief Complaint: Flu like Time Seen by MD: 07:38 [facility] Provider: [facility] Reviewed Notes: Nurses Notes, Medications, Allergies Allergies: Coded Allergies: NSAIDs (Verified Allergy, Unknown, 09/02/24) Home Meds Active Scripts Amoxicillin & Pot Clavulanate (AUGMENTIN TABLET) 875 Mg Tb, 875 MG PO BID for 7 Days, #14 TAB 0 Refills Prov:JUNIOR FAITH DEPALLETIZER OPERATOR 09/02/24 Nifedipine (Nifedipine ER) 30 Mg Tab, 30 MG PO DAILY for 30 Days, #30 TAB Prov:SHERYL WILLOUGHBY 04/03/24 Information Source: Patient Mode of Arrival: Ambulatory Past Medical History PAST MEDICAL HISTORY: COPD Family History Family History: Reviewed,noncontributory to illness All Other Systems: Reviewed and Negative (Per HPI) Physical Exam General Appearance: No Apparent Distress, Normal HEENT: Normal ENT Inspection, Pharynx Normal, TMs Normal, Other (Frontal TTP) Neck: Full Range of Motion, Non-Tender, Normal, Normal Inspection Respiratory: Chest Non-Tender, Lungs Clear, No Accessory Muscle Use, No Respiratory Distress, Normal Breath Sounds Cardiovascular: No Edema, No JVD, No Murmur, No Gallop, Normal Peripheral Pulses, Regular Rate/Rhythm Breast Exam: Deferred Gastrointestinal: No Organomegaly, Non Tender, No Pulsatile Mass, Normal Bowel Sounds, Soft Genitalia: Deferred Pelvic: Deferred Rectal: Deferred Extremities: No calf tenderness, Normal capillary refill, Normal inspection, Normal range of motion, Non-tender, No pedal edema Musculoskeletal : Apperance: Normal Neurologic: Alert, occupational therapy manager II-XII nml as Tested, No Motor Deficits, Normal Affect, Normal Mood, No Sensory Deficits Cerebellar Function: Normal Reflexes: Normal Skin: Dry, Normal Color, Warm Lymphatic: No Adenopathy Was a procedure done? Was a procedure done?: No EENT DIFF Eye: Other Sore Throat: Viral Pharyngitis, URI X-Ray, Labs, Meds, VS Vital Signs Date Time Temp Pulse Resp B/P (MAP) Pulse Ox O2 Delivery O2 Flow Rate FiO2 09/02/24 08:43 97.5 85 18 110/62 (78) 95 97.5 09/02/24 07:36 92 17 93 Room Air 09/02/24 07:36 99.8 92 17 138/75 (96) 95 99.8 09/02/24 07:21 99.8 92 17 138/75 (96) 95 99.8 Lab Test 09/02/24 08:37 09/02/24 08:27 Range/Units White Blood Count 5.7 4.4-10.8 10^3/uL Red Blood Count 4.23 L 4.5-5.90 10^6/uL Hemoglobin 13.4 L 13.5-17.5 g/dL Hematocrit 39.2 L 41.0-53.0 % Mean Corpuscular Volume 92.7 80.0-100.0 fL Mean Corpuscular Hemoglobin 31.6 28.0-32.0 pg Mean Corpuscular Hemoglobin Concent 34.1 32.0-36.0 g/dL Red Cell Distribution Width 16.7 H 11.8-14.3 % Platelet Count 190 140-450 10^3/uL Mean Platelet Volume 6.7 L 6.9-10.8 fL Neutrophils (%) (Auto) 61.7 37.0-80.0 % Lymphocytes (%) (Auto) 24.9 10.0-50.0 % Monocytes (%) (Auto) 10.7 0.0-12.0 % Eosinophils (%) (Auto) 2.0 0.0-7.0 % Basophils (%) (Auto) 0.7 0.0-2.0 % Neutrophils # (Auto) 3.5 1.6-8.6 10 ^3/uL Lymphocytes # (Auto) 1.4 0.4-5.4 10 ^3/uL Monocytes # (Auto) 0.6 0-1.3 10 ^3/uL Eosinophils # (Auto) 0.1 0-0.8 10 ^3/uL Basophils # (Auto) 0 0-0.2 10 ^3/uL Nucleated Red Blood Cells 0.1 % Sodium Level 143 136-145 mmol/L Potassium Level 4.1 3.5-5.1 mmol/L Chloride Level 110 H 98-107 mmol/L Carbon Dioxide Level 25 20-31 mmol/L Anion Gap 8 5-15 Blood Urea Nitrogen 20 9-23 mg/dL Creatinine 1.35 H 0.700-1.30 mg/dL Glomerular Filtration Rate Calc 53 >90 mL/min BUN/Creatinine Ratio 14.8 10.0-20.0 Serum Glucose 163 H 74-106 mg/dL Calcium Level 10.1 8.7-10.4 mg/dL Influenza Type A Antigen Negative Negative Influenza Type B Antigen Negative Negative SARS-CoV-2 Antigen (Rapid) Negative NEGATIVE Current Medications Medications (Trade) Dose Ordered Sig/Dorothea Route Start Time Stop Time Status Last Admin Ceftriaxone Sodium (Rocephin) 1,000 mg ONCE ONCE IM 09/02/24 09:45 09/02/24 09:46 DC 09/02/24 09:58 PATIENT: KIKE CACEREST: [id number]: [id number] : 1945 LOC: ER ROOM / BED: / AGE / SEX: 79 / M ADM STATUS: REG ER SERVICE 3 ORDERING PHYSICIAN: JUNIOR FAITH DEPALLETIZER OPERATOR PROCEDURE(s): CXR1 - CHEST XRAY 1 VIEW REASON: Cough, rule out PNA ORDER NUMBER(s): [id number], ACCESSION NUMBER(s): [id number] CHEST RADIOGRAPH Indication: Cough, rule out PNA Technique: Single frontal view of the chest was obtained Comparison: None FINDINGS: Lines and Tubes: None Lungs: Interstitial prominence. No focal airspace disease. Pleura: No effusion. No pneumothorax. Cardiomediastinal contours: Unremarkable Bones: Unremarkable IMPRESSION: 1. Interstitial prominence which may reflect pulmonary congestion or chronic lung disease. ATED BY: RAOUL DÍAZ MD DICTATED DATE/TIME: 09/02/24812 SIGNED BY: RAOUL DÍAZ MD SIGNED DATE/TIME: 09/02/24812 X-Ray, Labs, Meds, VS Comment The patient is overall well-appearing nontoxic on exam. On physical exam, respirations even and unlabored, clear to auscultation bilaterally. Oxygen stable on room air. Viral testing done and results show neg covid and flu Chest x-ray was obtained and interpreted independently by myself Low suspicion of strep pharyngitis given physical exam findings and patient's presenting symptoms No signs of meningismus on exam Overall, the patient is well hydrated and nontoxic. Plan for symptomatic control for fever and pain as needed. The patient was able to tolerate p.o. intake in the ED. at this time, patient is safe for discharge home. The exam findings and plan discussed. We will discharge home with PCP follow up and strict return precautions. Time of 1ST Reevaluation: 09:30 Reevaluation 1ST: Improved Patient Education/Counseling: Diagnosis, Treatment Family Education/Counseling: Diagnosis, Treatment Departure 1 Departure Time of Disposition: 09:37 Impression: Primary Impression: Sinusitis Qualified Codes: J01.10 - Acute frontal sinusitis, unspecified Disposition: HOME / SELF CARE / HOMELESS Condition: Stable e-Prescriptions Amoxicillin & Pot Clavulanate (AUGMENTIN TABLET) 875 Mg Tb 875 MG PO BID for 7 Days, #14 TAB 0 Refills Prov: JUNIOR FAITH NP 09/02/24 Critical Care Note Critical Care Time?: No Stability Stability form required: No Heart Score Heart Score: Heart Score Response (Comments) Value History N/A 0 EKG N/A 0 Age N/A 0 Risk Factors N/A 0 Troponin N/A 0 Total 0 JUNIOR FAITH NP Sep 02, 2024 09:38
[2024-09-02] MEDS: cefTRIAXone SOD 1,000 MG VL IM ONE (09:58)
== END 2024-09-02 09:45 | disposition home or self-care (01) ==
LOC: ER 07:08
DX: J01.10 Acute frontal sinusitis, unspecified (principal); J44.9 Chronic obstructive pulmonary disease, unspecified; Z20.822 Contact with and (suspected) exposure to COVID-19; Z79.899 Other long term (current) drug therapy; Z88.6 Allergy status to analgesic agent
CPT/HCPCS: 36415; 71045; 80048; 85025; 87426; 87804; 96372; 99284; J0696

== ENCOUNTER 2025-05-31 20:44 | Emergency (ER) | payer OTHER, MEDICARE ==
[~2025-05-31] VITALS: Ht 185.4 cm; Wt 116.8 kg
[~2025-05-31 20:44] MED LIST changes: +AUG875T PO
[2025-05-31 22:44] VITALS: BP 138/85; TEMP 97.6
[2025-05-31 22:45] VITALS: PULSE 85; RESP 14; O2SAT 95
[2025-05-31] MEDS: ALPRAZolam 0.5 MG TAB PO ONE (23:31)
--- NOTE | 2025-05-31 23:37 | ED.PDOC ---
History of Present Illness HPI Comments 80-year-old male complaining of anxiety, states has a history of PTSD. States he normally takes medications for sleep but tried taking him tonight and could not get it to sleep. States his family members were for his house for the holiday and just left yesterday. [facility] very quiet, [facility] this is one of the triggers to his PTSD and anxiety. Patient states he tried to go to sleep but could not. Feels racing heart rate and anxiety currently. Patient has a member of the [facility], states he does have psychiatrist he speaks with a Chief Complaint: Anxiety Time Seen by MD: 22:29 Primary Care Provider: [facility] Reviewed Notes: Nurses Notes, Medications, Allergies Allergies: Coded Allergies: NSAIDs (Verified Allergy, Unknown, 09/02/24) Home Meds Active Scripts Amoxicillin & Pot Clavulanate (AUGMENTIN TABLET) 875 Mg Tb, 875 MG PO BID for 7 Days, #14 TAB 0 Refills Prov:JUNIOR FAITH REPLENISHER 09/02/24 Nifedipine (Nifedipine ER) 30 Mg Tab, 30 MG PO DAILY for 30 Days, #30 TAB Prov:SHERYL WILLOUGHBY 04/03/24 Information Source: Patient Mode of Arrival: Ambulatory Past Medical History PAST MEDICAL HISTORY: COPD Family History Family History: Reviewed,noncontributory to illness Constitutional: denies: chills, diaphoresis, fatigue, fever, malaise, sweats, weakness, others EENTM: denies: blurred vision, double vision, ear bleeding, ear discharge, ear drainage, ear pain, ear ringing, eye pain, eye redness, hearing loss, mouth pain, mouth swelling, nasal discharge, nose bleeding, nose congestion, nose pain, photophobia, tearing, throat pain, throat swelling, voice changes, others Respiratory: denies: cough, hemoptysis, orthopnea, SOB at rest, shortness of breath, SOB with excertion, stridor, wheezing, others Cardiovascular: denies: chest pain, dizzy spells, diaphoresis, Dyspnea on exertion, edema, irregular heart beat, left arm pain, lightheadedness, palpitations, PND, syncope, others Gastrointestinal: denies: abdomen distended, abdominal pain, blood streaked bowels, constipated, diarrhea, dysphagia, difficulty swallowing, hematemesis, melena, nausea, poor appetite, poor fluid intake, rectal bleeding, rectal pain, vomiting, others Genitourinary: denies: burning, dysuria, flank pain, frequency, hematuria, incontinence, penile discharge, penile sore, pain, testicle pain, testicle swelling, urgency, others Neurological: denies: dizziness, fainting, headache, left sided numbness, left sided weakness, numbness, paresthesia, pre-existing deficit, right sided numbness, right sided weakness, seizure, speech problems, tingling, tremors, weakness, others Musculoskeletal: denies: back pain, gout, joint pain, joint swelling, muscle pain, muscle stiffness, neck pain, others Integumetry: denies: bruises, change in color, change in hair/nails, dryness, laceration, lesions, lumps, rash, wounds, others Allergic/Immunocompromised: denies: Difficulty Healing, Frequent Infections, Hives, Itching, others Hematologic/Lymphatic: denies: anemia, blood clots, easy bleeding, easy bruising, swollen glands, others Endocrine: denies: excessive hunger, excessive sweating, excessive thirst, excessive urination, flushing, intolerance to cold, intolerance to heat, unexplained weight gain, unexplained weight loss, others Psychiatric: denies: anxiety, bipolar disorder, depression, hopeless, panic disorder, schizophrenia, sleepless, suicidal, others All Other Systems: Reviewed and Negative Physical Exam General Appearance: No Apparent Distress, Normal HEENT: Normal ENT Inspection, Pharynx Normal, TMs Normal Neck: Full Range of Motion, Non-Tender, Normal, Normal Inspection Respiratory: Chest Non-Tender, Lungs Clear, No Accessory Muscle Use, No Respiratory Distress, Normal Breath Sounds Cardiovascular: No Edema, No JVD, No Murmur, No Gallop, Normal Peripheral Pulses, Regular Rate/Rhythm Breast Exam: Deferred Gastrointestinal: No Organomegaly, Non Tender, No Pulsatile Mass, Normal Bowel Sounds, Soft Genitalia: Deferred Pelvic: Deferred Rectal: Deferred Extremities: No calf tenderness, Normal capillary refill, Normal inspection, Normal range of motion, Non-tender, No pedal edema Musculoskeletal : Apperance: Normal Neurologic: Alert, 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 Was a procedure done?: No Differential Dx Considerations may include: ptsd, depression, anxiety X-Ray, Labs, Meds, VS Vital Signs Date Time Temp Pulse Resp B/P (MAP) Pulse Ox O2 Delivery O2 Flow Rate FiO2 05/31/25 22:45 85 14 95 Room Air 05/31/25 22:44 97.6 85 14 138/85 (102) 94 97.6 05/31/25 20:49 97.9 106 24 174/91 92 97.9 Current Medications Medications (Trade) Dose Ordered Sig/Dorothea Route Start Time Stop Time Status Last Admin Alprazolam (Xanax Tablet) 1 mg ONCE ONCE PO 05/31/25 23:30 05/31/25 23:31 DC 05/31/25 23:31 X-Ray, Labs, Meds, VS Comment Imaging: X-rays and CT scans were reviewed and interpreted by this provider, imaging shows no fractures and no pathological disease. Pending radiology review. Laboratory: Labs reviewed and interpreted by this provider. No significant abnormalities noted. Patient has prior medical visits reviewed. Med reconciliation performed Vital signs reviewed Time of 1ST Reevaluation: 23:35 Reevaluation 1ST: Unchanged Patient Education/Counseling: Diagnosis, Treatment, Prognosis, Need For Follow Up (Follow up with the PCP in next available appointment. Return emergency room if symptoms worsen.) Family Education/Counseling: No Family Present SEPSIS Sepsis Screen Date sepsis recognized/suspect: May 31, 2025 Time Sepsis recognized/suspect: 2053 Recent Procedure: No On Antibiotic Therapy: No Respiratory Rate >20: Yes Heart Rate >90: Yes Temp<36 C (96.8 F) or >38.3 C: No SBP <90 or MAP <65 mmHG: No New Acute Mental Status Change: No Is the patient on CPAP, BIPAP,: No Vital Signs Date Time Temp Pulse Resp B/P (MAP) Pulse Ox O2 Delivery O2 Flow Rate FiO2 05/31/25 22:45 85 14 95 Room Air 05/31/25 22:44 97.6 85 14 138/85 (102) 94 97.6 05/31/25 20:49 97.9 106 24 174/91 92 97.9 Medications Medications Dose Ordered Sig/Dorothea Route Start Time Stop Time Status Last Admin Dose Admin Alprazolam 1 mg ONCE ONCE PO 05/31/25 23:30 05/31/25 23:31 DC 05/31/25 23:31 Departure 1 Departure Time of Disposition: 23:36 Impression: Primary Impression: Anxiety Disposition: 04 [facility] Condition: Stable Referrals Follow up in the emergency department in the next 24-48 hours if symptoms worsen. It was advised to follow up with your primary care doctor in the next 3-4 days for further evaluation. Critical Care Note Critical Care Time?: No Stability Stability form required: No VENECIA,SERGIO SANTANA May 31, 2025 23:37
== END 2025-05-31 23:42 | disposition home or self-care (01) ==
LOC: ER 20:44
DX: F41.9 Anxiety disorder, unspecified (principal); J44.9 Chronic obstructive pulmonary disease, unspecified; Z79.899 Other long term (current) drug therapy; Z88.6 Allergy status to analgesic agent